=== PATIENT | male | born 1990 | race Caucasian/White ===

== ENCOUNTER 2017-03-14 17:19 | Emergency (ER) | payer BC, OTHER ==
--- NOTE | 2017-03-14 17:42 | EDPHY ---
H & P Stated Complaint: experienced tingling in leg this a.m. during Pilates exercise Time Seen by Provider: 03/14/17 17:26 HPI/ROS: CHIEF COMPLAINT: Paresthesias HISTORY OF PRESENT ILLNESS: Patient is a 26-year-old man comes to the emergency department complaining of paresthesias down the back both legs and slightly in his lumbar spine. It does not involve his gluteus. He states that he has had the symptoms every time he bends over for the last couple of years. States that he usually resolves when he stands up. Today however he was bending over during Pilates and stretched more than usual and has had persistent paresthesias since that time. He feels like they may have worsened over the last hour. He has no weakness. He is able to stand on his Tippy toes and heels and balance and walk without any difficulty. Normal reflexes. No bowel or bladder abnormalities. No pain. No recent fevers or infections. No immunocompromise. No IV drug abuse. He states that he spoke with a doctor over the phone who told him to come get an MRI. REVIEW OF SYSTEMS: Constitutional: denies: chills, fever, recent illness, recent injury EENTM: denies: blurred vision, double vision, nose congestion Respiratory: denies: cough, shortness of breath Cardiac: denies: chest pain, irregular heart rate, lightheadedness, palpitations Gastrointestinal/Abdominal: denies: abdominal pain, diarrhea, nausea, vomiting, blood streaked stools Genitourinary: denies: dysuria, frequency, hematuria, pain Musculoskeletal: See HPI Skin: denies: lesions, rash, jaundice, bruising Neurological: denies: headache, numbness, paresthesia, tingling, dizziness, weakness Hematologic/Lymphatic: denies: blood clots, easy bleeding, easy bruising Immunologic/allergic: denies: HIV/AIDS, transplant EXAM: GENERAL: Well-appearing, well-nourished and in no acute distress. HEAD: Atraumatic, normocephalic. EYES: Pupils equal round and reactive to light, extraocular movements intact, sclera anicteric, conjunctiva are normal. ENT: TMs normal, nares patent, oropharynx clear without exudates. Moist mucous membranes. NECK: Normal range of motion, supple without lymphadenopathy or JVD. LUNGS: Breath sounds clear to auscultation bilaterally and equal. No wheezes rales or rhonchi. HEART: Regular rate and rhythm without murmurs, rubs or gallops. Strong pulses ABDOMEN: Soft, nontender, normoactive bowel sounds. No guarding, no rebound. No masses appreciated. BACK: No CVA tenderness, no spinal tenderness, step-offs or deformities EXTREMITIES: Normal range of motion, no pitting or edema. No clubbing or cyanosis. equal pulses and bilateral DP and PT. NEUROLOGICAL: paresthesias down posterior of both legs and heels and feet. Normal sensation to light touch. Cranial nerves II through XII grossly intact. Normal speech, normal gait. 5/5 strength, normal movement in all extremities , normal sensation, normal reflexes, PSYCH: Normal mood, normal affect. SKIN: Warm, dry, normal turgor, no visible rashes or lesions. Source: Patient Exam Limitations: No limitations - Personal History Current Tetanus Diphtheria and Acellular Pertussis (TDAP): Yes - Medical/Surgical History Hx Asthma: No Hx Chronic Respiratory Disease: No Hx Diabetes: No Hx Cardiac Disease: No Hx Renal Disease: No Hx Cirrhosis: No Hx Alcoholism: Yes Hx HIV/AIDS: No Hx Splenectomy or Spleen Trauma: No Other PMH: denies - Family History Significant Family History: No pertinent family hx - Social History Smoking Status: Former smoker Alcohol Use: None Drug Use: None Constitutional: Initial Vital Signs Temperature (C) 36.4 C 03/14/17 17:23 Heart Rate 73 03/14/17 17:23 Respiratory Rate 18 03/14/17 17:23 Blood Pressure 118/73 03/14/17 17:23 O2 Sat (%) 97 03/14/17 17:23 O2 Delivery Mode Room Air Allergies/Adverse Reactions: No Known Allergies Allergy (Verified 03/14/17 17:21) Home Medications: Medication Instructions Recorded NK [No Known Home Meds] 03/14/17 Medical Decision Making - Diagnostics Imaging Results: Imaging Impressions Lumbar Spine MRI 03/14/17 17:38 Impression: 1. No visible etiology for the patient's symptoms. 2. Please see above findings at specific disk levels. Findings discussed with Rivera Holder 03/14/2017 at 18:52. Imaging: Discussed imaging studies w/ fisher scallop Radiologist ED Course/Re-evaluation: We discussed the imaging results. The patient is relieved. He declines further workup or testing. I will give him a dose of Decadron and have encouraged ibuprofen and rest. He understands and agrees with this plan. We discussed indications for returning. We also discussed follow-up. Differential Diagnosis: Partial list of the Differential diagnosis considered include but were not limited to; radiculopathy, peripheral neuropathy, and although unlikely based on the history and physical exam, I also considered cord compression, infection , tumor. I discussed these differential diagnoses and the plan with the patient as well as the usual and expected course. The patient understands that the diagnosis is provisional and that in medicine we are not always correct and that further workup is often warranted. Usual and customary warnings were given. All of the patient's questions were answered. The patient was instructed to return to the emergency department should the symptoms at all worsen or return, otherwise to followup with the physician as we discussed. - Data Points Medications Given: Discontinued Medications Dexamethasone (Decadron) 10 mg PO EDNOW ONE Stop: 03/14/17 19:05 Last Admin: 03/14/17 19:36 Dose: 10 mg Ibuprofen (Motrin) 800 mg PO EDNOW ONE Stop: 03/14/17 19:05 Last Admin: 03/14/17 19:37 Dose: 800 mg Departure - Departure Disposition: Home, Routine, Self-Care Clinical Impression: Neuropathy Condition: Fair Instructions: Peripheral Neuropathy (ED) Referrals: Jos Ray MD [Medical Doctor] - As per Instructions
[2017-03-14] MEDS ORDERED: DEXAMETHASONE 4 MG TAB PO ONE (19:04)
[2017-03-14] MEDS ORDERED: IBUPROFEN 200 MG TAB PO ONE (19:04)
[2017-03-14 19:41] VITALS: BP 121/71; PULSE 72; RESP 14; TEMP 99.3; O2SAT 98
== END 2017-03-14 19:40 | disposition home or self-care (01) ==
DX: G62.9 Polyneuropathy, unspecified (principal); Z87.891 Personal history of nicotine dependence

== ENCOUNTER 2018-12-27 13:18 | Emergency (ER) | payer BC ==
--- NOTE | 2018-12-27 14:05 | EDPHY ---
H & P Stated Complaint: cp Time Seen by Provider: 12/27/18 13:28 HPI/ROS: CHIEF COMPLAINT: Chest pain HISTORY OF PRESENT ILLNESS: 28-year-old male presents with a 5 day history of chest pain. Onset of a sharp and stabbing left-sided chest pain 5 days ago. The pain has been persistent and moderate to severe. He was diagnosed with myopericarditis in October 2018 and was placed on colchicine and ibuprofen at that time. He took colchicine for 1 month and symptoms completely resolved. Pain currently is similar to prior myopericarditis. He started taking ibuprofen 200mg bid and colchicine 2 days ago, d/t concern for recurrent mild pericarditis. No fever, shortness of breath or upper respiratory symptoms. REVIEW OF SYSTEMS: complete 10 point ROS reviewed and is negative except for the noted elements in the HPI - Personal History Current Tetanus/Diphtheria Vaccine: Unsure Current Tetanus Diphtheria and Acellular Pertussis (TDAP): Unsure - Medical/Surgical History Hx Asthma: No Hx Chronic Respiratory Disease: No Hx Diabetes: No Hx Cardiac Disease: Yes Hx Renal Disease: No Hx Cirrhosis: No Hx Alcoholism: Yes Hx HIV/AIDS: No Hx Splenectomy or Spleen Trauma: No Other PMH: myopericarditis, GERD - Social History Smoking Status: Former smoker Constitutional: Initial Vital Signs Temperature (C) 37 C 12/27/18 13:23 Heart Rate 93 12/27/18 13:23 Respiratory Rate 16 12/27/18 13:23 Blood Pressure 161/97 H 12/27/18 13:23 O2 Sat (%) 97 12/27/18 13:23 O2 Delivery Mode Room Air Allergies/Adverse Reactions: No Known Allergies Allergy (Verified 12/27/18 13:22) Home Medications: Medication Instructions Recorded Colchicine 12/27/18 Colchicine [Colchicine (*)] 0.6 mg PO BID #60 tab 12/27/18 Ibuprofen 12/27/18 Medical Decision Making - Diagnostics EKG Interpretation: EKG interpreted by me reveals normal sinus rhythm, rate 82, probable left atrial enlargement, no ST or T segment changes. Interpretation: Borderline EKG Imaging Results: Imaging Impressions Chest X-Ray 12/27/18 13:32 Impression: No acute findings in the chest. Imaging: I viewed and interpreted images myself ED Course/Re-evaluation: This patient presents with recurrent chest pain after recent diagnosis of myopericarditis. EKG reveals no evidence of pericarditis and troponin is normal. Chest x-ray is unremarkable. I suspect recurrent myopericarditis, though tests are normal today. I consulted [facility] and spoke with Francisco. I will place the patient on colchicine 0.6 mg twice daily and ibuprofen 600 mg three times daily. Francisco will help arrange prompt outpatient follow-up. Warning signs discussed with the patient. Differential Diagnosis: Differential diagnosis includes though it is not limited to pneumonia, pneumothorax, pulmonary embolism, aortic dissection, pericarditis, acute coronary syndrome. - Data Points Laboratory Results: Laboratory Results 12/27/18 13:37 12/27/18 13:37 12/27/18 12/27/18 12/27/18 13:37 13:37 13:34 WBC 6.15 10^3/uL 10^3/uL (3.80-9.50) RBC 5.32 10^6/uL 10^6/uL (4.40-6.38) Hgb 16.0 g/dL g/dL (13.7-17.5) Hct 47.4 % % (40.0-51.0) MCV 89.1 fL fL (81.5-99.8) MCH 30.1 pg pg (27.9-34.1) MCHC 33.8 g/dL g/dL (32.4-36.7) RDW 12.8 % % (11.5-15.2) Plt Count 227 10^3/uL 10^3/uL (150-400) MPV 10.8 fL fL (8.7-11.7) Neut % (Auto) 52.4 % % (39.3-74.2) Lymph % (Auto) 35.6 % % (15.0-45.0) Carbon % (Auto) 7.6 % % (4.5-13.0) Eos % (Auto) 3.6 % % (0.6-7.6) Baso % (Auto) 0.5 % % (0.3-1.7) Nucleat RBC Rel Count 0.0 % % (0.0-0.2) Absolute Neuts (auto) 3.22 10^3/uL 10^3/uL (1.70-6.50) Absolute Lymphs (auto) 2.19 10^3/uL 10^3/uL (1.00-3.00) Absolute Monos (auto) 0.47 10^3/uL 10^3/uL (0.30-0.80) Absolute Eos (auto) 0.22 10^3/uL 10^3/uL (0.03-0.40) Absolute Basos (auto) 0.03 10^3/uL 10^3/uL (0.02-0.10) Absolute Nucleated RBC 0.00 10^3/uL 10^3/uL (0-0.01) Immature Gran % 0.3 % % (0.0-1.1) Immature Gran # 0.02 10^3/uL 10^3/uL (0.00-0.10) Sodium 138 mEq/L mEq/L (135-145) Potassium 4.7 mEq/L mEq/L (3.5-5.2) Chloride 105 mEq/L mEq/L (97-110) Carbon Dioxide 26 mEq/l mEq/l (22-31) Anion Gap 7 mEq/L mEq/L (6-14) BUN 17 mg/dL mg/dL (7-23) Creatinine 0.9 mg/dL mg/dL (0.7-1.3) Estimated GFR > 60 Glucose 87 mg/dL mg/dL (70-100) Calcium 9.4 mg/dL mg/dL (8.5-10.4) POC Troponin I 0.01 ng/mL ng/mL (0.00-0.08) Point of Care Test Results: Chemistry 12/27/18 13:34 POC Troponin I 0.01 ng/mL ng/mL (0.00-0.08) Departure - Departure Disposition: Home, Routine, Self-Care Clinical Impression: Chest pain Qualifiers: Chest pain type: chest pain on breathing Qualified Code(s): R07.1 - Chest pain on breathing Condition: Good Instructions: Chest Pain (ED) Additional Instructions: Ibuprofen 600 mg 3 times daily. Take colchicine as prescribed. You will need to take colchicine for 3 months. Return for worsening symptoms or any concerns. Referrals: Antoine Alanis MD [Primary Care Provider] - As per Instructions Vinay Mg MD [Medical Doctor] - As per Instructions (You have an appointment with Dr. Mg on Monday at 1:30 p.m. in the [place] office.) Prescriptions: Colchicine [Colchicine (*)] 0.6 mg PO BID #60 tab
[2018-12-27 14:26] VITALS: BP 122/69
[2018-12-27 14:49] LABS: PLATELET COUNT 227 10^3/uL (150-400)
--- NOTE | 2018-12-27 19:27 | CPEKG ---
Test Reason : OPEN Blood Pressure : / mmHG Vent. Rate : 082 BPM Atrial Rate : 083 BPM P-R Int : 168 ms QRS Dur : 087 ms QT Int : 382 ms P-R-T Axes : 043 036 022 degrees QTc Int : 446 ms Sinus rhythm Probable left atrial enlargement Confirmed by Ayla Leonard ([id number]) on 12/27/2018 7:27:09 PM Referred By: Ayla Leonard Confirmed By:Ayla Leonard
== END 2018-12-27 14:28 | disposition home or self-care (01) ==
DX: R07.1 Chest pain on breathing (principal); Z87.891 Personal history of nicotine dependence
CPT/HCPCS: 84484-ER